=== PATIENT | female | born 1965 | race Caucasian/White ===

== ENCOUNTER 2018-01-04 08:45 | Emergency (ER) | payer OTHER ==
[~2018-01-04] VITALS: Ht 162.6 cm; Wt 54.4 kg
[2018-01-04] MEDS ORDERED: AROMASIN25 MG (09:26)
[2018-01-04] MEDS ORDERED: LEVAQUIN750 MG PO (11:26)
== END 2018-01-04 11:44 | disposition home or self-care (01) ==
LOC: ER 08:45
DX: S01.111A Laceration without foreign body of right eyelid and periocular area, initial encounter (principal); W19.XXXA Unspecified fall, initial encounter; Y93.89 Activity, other specified; Y92.098 Other place in other non-institutional residence as the place of occurrence of the external cause; Y99.8 Other external cause status

== ENCOUNTER 2020-07-31 18:25 | Emergency (ER) | payer OTHER ==
[~2020-07-31] VITALS: Ht 154.9 cm; Wt 52.2 kg
[~2020-07-31 18:25] MED LIST: AROMASIN25 MG; LEVAQUIN750 MG PO
== END 2020-07-31 23:00 | disposition home or self-care (01) ==
LOC: ER 18:25
DX: S61.220A Laceration with foreign body of right index finger without damage to nail, initial encounter (principal); W45.8XXA Other foreign body or object entering through skin, initial encounter; Y93.89 Activity, other specified; Y92.098 Other place in other non-institutional residence as the place of occurrence of the external cause; Y99.8 Other external cause status

== ENCOUNTER 2020-08-01 17:21 | Emergency (ER) | payer OTHER ==
[~2020-08-01] VITALS: Ht 154.9 cm; Wt 52.2 kg
== END 2020-08-01 21:33 | disposition home or self-care (01) ==
LOC: ER 17:21
DX: L03.012 Cellulitis of left finger (principal); W45.8XXS Other foreign body or object entering through skin, sequela

== ENCOUNTER 2020-08-10 11:21 | Emergency (ER) | payer OTHER ==
[~2020-08-10] VITALS: Ht 154.9 cm; Wt 52.2 kg
== END 2020-08-10 12:11 | disposition home or self-care (01) ==
LOC: ER 11:21
DX: Z48.02 Encounter for removal of sutures (principal)